=== PATIENT | female | born 2000 | race Caucasian/White ===

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

== ENCOUNTER → 2022-10-14 | Outpatient (REF) | payer BC, OTHER ==
[2022-10-14 20:15] LABS: GC DNA AMPLIFICATION NEGATIVE (NEGATIVE)
== END ==
LOC: M LAB REF 17:15
PROVIDERS: ATTEND Registered Nurse
DX: Z11.3 Encounter for screening for infections with a predominantly sexual mode of transmission (principal)

== ENCOUNTER 2023-03-23 18:05 | Emergency (ER) | payer BC, OTHER ==
[2023-03-23] MEDS ORDERED: FAMO10TA50 PO (18:12)
[2023-03-23] MEDS ORDERED: JUNETAB PO (18:12)
[2023-03-23] MEDS ORDERED: NS 1,000 ML IV ONE (18:55)
[2023-03-23 19:08] LABS: BASO # 0.1 10^3/uL (0.0-0.2); BASO % 0.7 % (0.0-1.0); EOS # 0.2 10^3/uL (0.0-0.5); HEMATOCRIT 37.2 % (36.0-47.0); HEMOGLOBIN 12.8 g/dl (12.0-15.5); LYMPH % 23.7 % (24.0-44.0); MEAN CORPUSCULAR HEMOGLOBIN 31.4 pg (27.0-33.0); MEAN CORPUSCULAR HGB CONC 34.4 g/dl (32.0-36.5); MEAN CORPUSCULAR VOLUME 91.4 fl (80.0-96.0); MONO # 0.5 10^3/uL (0.0-0.8); MONO % 6.4 % (2.0-8.0); NEUTROPHILS # 5.7 10^3/uL (1.5-8.5); PLATELET COUNT, AUTOMATED 292 10^3/uL (150-450); RED BLOOD COUNT 4.07 10^6/uL (4.00-5.40); WHITE BLOOD COUNT 8.4 10^3/uL (4.0-10.0)
[2023-03-23] MEDS ORDERED: KETOROLAC 30 MG/ML 1ML VIAL IV ONE (19:10)
[2023-03-23 19:30] LABS: LIPASE 44 U/L (12-53)
[2023-03-23 19:32] LABS: CK-MB VALUE MASS < 1.0 NG/ML (<3.6)
[2023-03-23 19:33] LABS: ALBUMIN 4.3 G/DL (3.2-5.2); ALKALINE PHOSPHATASE 44 U/L (46-116); ALT/SGPT 14 U/L (7.0-40); AST/SGOT 10 U/L (<34); BILIRUBIN,DIRECT 0.1 MG/DL (<0.4); BILIRUBIN,TOTAL 0.3 MG/DL (0.3-1.2); BLOOD UREA NITROGEN 13 MG/DL (9-23); CALCIUM LEVEL 9.8 MG/DL (8.5-10.1); CARBON DIOXIDE LEVEL 24 MMOL/L (20-31); CHLORIDE LEVEL 107 MMOL/L (98-107); CREATININE FOR GFR 0.81 MG/DL (0.55-1.30); GLUCOSE, FASTING 109 MG/DL (60-100); SODIUM LEVEL 140 MMOL/L (136-145); TOTAL PROTEIN 7.5 G/DL (5.7-8.2)
[2023-03-23 19:36] LABS: CPK CREATINE PHOSPHOKINASE 101 U/L (34-145); MB/CK RELATIVE INDEX 0.99 (< OR =4)
[2023-03-23] MEDS ORDERED: NS 500 ML IV ONE (20:50)
[2023-03-23] MEDS ORDERED: MAALOX 30 ML SUSP *UDC PO ONE (20:50)
[2023-03-23 21:30] VITALS: BP 133/68; TEMP 98.1; O2SAT 100
[2023-03-23] MEDS ORDERED: HYDR-3363 PO (22:04)
== END 2023-03-23 22:14 | disposition home or self-care (01) ==
LOC: M ED 18:05
DX: R10.13 Epigastric pain (principal); R00.0 Tachycardia, unspecified; K21.9 Gastro-esophageal reflux disease without esophagitis; Z79.899 Other long term (current) drug therapy; Z79.1 Long term (current) use of non-steroidal anti-inflammatories (NSAID); Z79.3 Long term (current) use of hormonal contraceptives
CPT/HCPCS: 71046; 76705; 80047; 80048; 80076; 82550; 82553; 83605; 83690; 84484; 84702; 85025; 85379; 87486; 87581; 87633; 87798; 93005; 96361; 96374; 99284; J1885